=== PATIENT | female | born 1950 | race Native Hawaiian/Other Pacific Islander ===

== ENCOUNTER 2017-05-04 09:32 | Inpatient (IN) | payer BC ==
[~2017-05-04] VITALS: Ht 152.4 cm; Wt 81.7 kg
[2017-05-04 10:36] VITALS: BP 173/69; TEMP 99.2; Ht 152.4 cm; Wt 81.7 kg
[2017-05-04 12:00] VITALS: BP 173/69; TEMP 99.2
[2017-05-04 12:51] LABS: PLATELET COUNT 275 K/uL (152-353)
[2017-05-04 13:03] LABS: POTASSIUM 4.3 mmol/L (3.6-5.2)
[2017-05-04] MEDS ORDERED: INSUINJ47 SC (13:31)
[2017-05-04 16:00] VITALS: BP 136/49; TEMP 98.9
[2017-05-04 20:00] VITALS: BP 145/57; TEMP 101
[2017-05-05] VITALS: BP 126/58; TEMP 101.4
[2017-05-05 04:00] VITALS: BP 107/50; TEMP 97.7
[2017-05-05 04:27] LABS: PLATELET COUNT 237 K/uL (152-353)
[2017-05-05 04:54] LABS: POTASSIUM 3.9 mmol/L (3.6-5.2)
[2017-05-05 07:54] VITALS: BP 118/63; TEMP 97.7
[2017-05-05 12:00] VITALS: BP 140/59; TEMP 98.2
[2017-05-05 16:00] VITALS: BP 162/70; TEMP 98
[2017-05-05 20:00] VITALS: BP 166/72; TEMP 101
[2017-05-06] VITALS (7 sets, daily range): BP systolic 110–154; BP diastolic 44–80; TEMP 98–100.5
[2017-05-06 07:10] LABS: PLATELET COUNT 260 K/uL (152-353)
[2017-05-06 07:46] LABS: POTASSIUM 3.7 mmol/L (3.6-5.2)
[2017-05-07] VITALS (11 sets, daily range): BP systolic 110–165; BP diastolic 51–95; TEMP 98.2–99.7
[2017-05-07 10:50] LABS: PLATELET COUNT 292 K/uL (152-353)
[2017-05-08 04:00] VITALS: BP 155/78; TEMP 97.6
[2017-05-08 05:29] LABS: PLATELET COUNT 303 K/uL (152-353)
[2017-05-08 06:10] LABS: POTASSIUM 5.4 mmol/L (3.6-5.2)
[2017-05-08 08:00] VITALS: BP 172/89; TEMP 98.6
[2017-05-08 12:00] VITALS: BP 140/55; TEMP 97.8
[2017-05-08 16:00] VITALS: BP 120/71; TEMP 98
[2017-05-08 20:16] VITALS: BP 136/67; TEMP 98.1
[2017-05-09] VITALS: BP 120/62; TEMP 97.8
[2017-05-09 04:00] VITALS: BP 171/88; TEMP 98.2
[2017-05-09 06:23] LABS: POTASSIUM 4.3 mmol/L (3.6-5.2)
[2017-05-09 06:32] LABS: PLATELET COUNT 352 K/uL (152-353)
[2017-05-09 08:00] VITALS: BP 167/81; TEMP 98
[2017-05-09 12:00] VITALS: BP 132/71; TEMP 98
[2017-05-09 16:00] VITALS: BP 131/65; TEMP 98.8
[2017-05-09 20:06] VITALS: BP 143/83; TEMP 98.6
[2017-05-10] VITALS (7 sets, daily range): BP systolic 99–173; BP diastolic 56–97; TEMP 97.7–98.8
[2017-05-10 06:55] LABS: PLATELET COUNT 358 K/uL (152-353)
[2017-05-10 07:08] LABS: POTASSIUM 3.5 mmol/L (3.6-5.2)
[2017-05-11] VITALS: BP 149/66; TEMP 98.9
[2017-05-11 04:00] VITALS: BP 156/80; TEMP 98.9
[2017-05-11 05:16] LABS: PLATELET COUNT 373 K/uL (152-353)
[2017-05-11 06:20] LABS: POTASSIUM 4.7 mmol/L (3.6-5.2)
[2017-05-11 08:00] VITALS: BP 161/76; TEMP 98.8
[2017-05-11 12:00] VITALS: BP 185/82; TEMP 98.6
== END 2017-05-11 16:00 | disposition home or self-care (01) | DRG 166 ==
LOC: MED/SURG 09:32
PROVIDERS: Emergency Medicine; ADMIT Nurse Practitioner Family
PROC: 0BJ08ZZ Inspection of Tracheobronchial Tree, Via Natural or Artificial Opening Endoscopic (ICD-10-PCS; principal; 2017-05-04)
PROC: 0B9D8ZX Drainage of Right Middle Lung Lobe, Via Natural or Artificial Opening Endoscopic, Diagnostic (ICD-10-PCS; 2017-05-04)
PROC: 0BDD8ZX Extraction of Right Middle Lung Lobe, Via Natural or Artificial Opening Endoscopic, Diagnostic (ICD-10-PCS; 2017-05-04)
PROC: 0BD58ZX Extraction of Right Middle Lobe Bronchus, Via Natural or Artificial Opening Endoscopic, Diagnostic (ICD-10-PCS; 2017-05-04)
DX: J44.1 Chronic obstructive pulmonary disease with (acute) exacerbation (principal); J18.8 Other pneumonia, unspecified organism; E11.9 Type 2 diabetes mellitus without complications; Z79.4 Long term (current) use of insulin; R06.02 Shortness of breath; H66.93 Otitis media, unspecified, bilateral; R91.8 Other nonspecific abnormal finding of lung field; M62.81 Muscle weakness (generalized)
CPT/HCPCS: 36415; 36600; 80053; 82805; 82947; 82948; 83540; 83550; 83735; 83880; 85027; 86606; 86612; 86628; 86635; 86698; 87040; 87070; 87077; 87101; 87205; 87804; 87899; 88108; 93005; 94640; 94664; 94760; 96366; 96372; J0132; J0456; J0696; J1815; J1940; J2250; J2405; J2704; J2930; J3010; Q9963

== ENCOUNTER 2018-07-13 15:00 | Outpatient (CLI) | payer OTHER ==
[~2018-07-13 15:00] MED LIST: INSUINJ47 SC
[2018-07-13] MEDS ORDERED: LIPITOR20 MG PO (15:45)
[2018-07-13] MEDS ORDERED: GLIM2TAB PO (15:49)
[2018-07-13] MEDS ORDERED: SITA50TA2 PO (15:50)
== END 2018-07-13 15:06 | disposition short-term general hospital (02) ==
LOC: AMB 15:00
DX: R53.1 Weakness (principal); R26.2 Difficulty in walking, not elsewhere classified
CPT/HCPCS: A0425; A0427

== ENCOUNTER 2018-07-13 15:10 | Emergency (ER) | payer OTHER ==
[~2018-07-13] VITALS: Ht 152.4 cm; Wt 72.6 kg
[2018-07-13 15:10] VITALS: TEMP 98.8
[2018-07-13 15:44] LABS: POTASSIUM 4.1 mmol/L (3.6-5.2)
[2018-07-13] MEDS ORDERED: LIPITOR20 MG PO (15:45)
[2018-07-13 15:49] LABS: PLATELET COUNT 276 K/uL (152-353)
[2018-07-13] MEDS ORDERED: GLIM2TAB PO (15:49)
[2018-07-13] MEDS ORDERED: SITA50TA2 PO (15:50)
[2018-07-13 15:53] LABS: PARTIAL THROMBOPLASTIN TIME 24.1 SECONDS (24.5-33.6)
[2018-07-13 16:34] VITALS: BP 185/81
== END 2018-07-13 17:50 | disposition short-term general hospital (02) ==
LOC: ED 15:10
PROVIDERS: Family Medicine
DX: I63.9 Cerebral infarction, unspecified (principal); G81.90 Hemiplegia, unspecified affecting unspecified side
CPT/HCPCS: 80053; 85027; 85610; 85730; 93005; 99285

== ENCOUNTER 2020-08-28 17:15 | Emergency (ER) | payer OTHER ==
[~2020-08-28] VITALS: Ht 152.4 cm; Wt 72.6 kg
[~2020-08-28 17:15] MED LIST changes: +GLIM2TAB PO; +LIPITOR20 MG PO; +SITA50TA2 PO
[2020-08-28 17:17] VITALS: BP 139/76; TEMP 98.3
[2020-08-28 17:45] LABS: PLATELET COUNT 261 K/uL (152-353)
[2020-08-28 17:56] LABS: PARTIAL THROMBOPLASTIN TIME 25.2 SECONDS (24.5-33.6)
[2020-08-28 18:47] LABS: POTASSIUM 4.1 mmol/L (3.6-5.2); SODIUM 142 mmol/L (136-145)
[2020-08-29] MEDS ORDERED: GLIM4TAB PO (02:48)
[2020-08-29] MEDS ORDERED: ESCITALOPRAM10 MG PO (02:48)
[2020-08-29] MEDS ORDERED: AMLODIPINE BESYLATE PO (02:49)
[2020-08-29] MEDS ORDERED: COZAAR100 MG PO (02:49)
[2020-08-29] MEDS ORDERED: HYDR25TA60 PO (02:50)
[2020-08-29] MEDS ORDERED: MELATONIN3 MG PO (02:51)
[2020-08-29] MEDS ORDERED: ASPIR-8181 MG PO (15:00)
== END 2020-08-28 22:58 | disposition still patient (30) ==
LOC: ED 17:15
PROVIDERS: Family Medicine
DX: G45.8 Other transient cerebral ischemic attacks and related syndromes (principal); I10 Essential (primary) hypertension; I69.351 Hemiplegia and hemiparesis following cerebral infarction affecting right dominant side; Z79.899 Other long term (current) drug therapy; Z51.81 Encounter for therapeutic drug level monitoring
CPT/HCPCS: 36415; 80053; 82550; 84484; 85027; 85610; 85730; 93005; 99283

== ENCOUNTER 2020-08-28 21:40 | Observation (INO) | payer OTHER ==
[~2020-08-28] VITALS: Ht 152.4 cm; Wt 72.3 kg
[2020-08-29 01:59] VITALS: BP 144/70; TEMP 98.1; Ht 152.4 cm; Wt 72.3 kg
--- NOTE | 2020-08-29 02:22 | NUR ---
ZULEMA for 08/28/20 @ 2300 Rec'd pt from ER via wheel chair admitted to room [address] Camejo with Dx: TIA. Pt is a full code. Is on bed rest with bed side commode with assistance. Pt alert and oriented and able to make needs and concerns known. No c/o voiced at this time. Sunithaero checks within normal limits. Oriented to room and call system. Call light in easy reach at this time.
[2020-08-29] MEDS ORDERED: GLIM4TAB PO (02:48)
[2020-08-29] MEDS ORDERED: ESCITALOPRAM10 MG PO (02:48)
[2020-08-29] MEDS ORDERED: AMLODIPINE BESYLATE PO (02:49)
[2020-08-29] MEDS ORDERED: COZAAR100 MG PO (02:49)
[2020-08-29] MEDS ORDERED: HYDR25TA60 PO (02:50)
[2020-08-29] MEDS ORDERED: MELATONIN3 MG PO (02:51)
[2020-08-29 04:00] VITALS: BP 126/63; TEMP 97.6
--- NOTE | 2020-08-29 04:29 | NUR ---
Assisted pt to bedside commode x1 person assist. Require extensive assist with getting OOB and into standing position for pivoting to bedside toilet. Has nonskid socks on but pt is very weak and unable to maintain balance. Assisted back to bed and call light in easy reach. Neuro checks WNL.
--- NOTE | 2020-08-29 05:52 | NUR ---
Pt resting in bed with eyes closed. No c/o voiced. Pt requires assist to bedside toilet. Neuro checks WNL. No s/s of distress. Call light in easy reach.
[2020-08-29 07:54] VITALS: BP 146/58; TEMP 98
[2020-08-29 09:52] LABS: PLATELET COUNT 251 K/uL (152-353)
[2020-08-29 09:59] LABS: POTASSIUM 3.8 mmol/L (3.6-5.2)
--- NOTE | 2020-08-29 11:15 | NUR ---
PERIPHERAL IV INFILTRATED. 3 UNSUCCESSFUL ATTEMPTS MADE TO INITIATE NEW IV. PATIENT TOLERATED WELL. CHARGE NURSE NOTIFIED.
[2020-08-29 12:13] VITALS: BP 167/76; TEMP 98.2
[2020-08-29] MEDS ORDERED: ASPIR-8181 MG PO (15:00)
--- NOTE | 2020-08-29 15:15 | NUR ---
PATIENT AND FAMILY REQUESTED TO BE TRANSFERRED TO [facility]. DR. MAJOR IN CONTACT WITH HOSPITAL. PATIENT PLACED ON WAITING LIST. PATIENT MADE AWARE. FURTHER INSTRUCTIONS TO COME.
[2020-08-29 16:27] VITALS: BP 120/55; TEMP 98.1
[2020-08-29 20:00] VITALS: BP 108/60; TEMP 98.3
--- NOTE | 2020-08-29 21:18 | NUR ---
PT'S BLOOD SUGAR IS 318. NO INSULIN ORDERED. NOTIFIED ER DOCTOR ORDER RECEIVED FOR SLIDING SCALE INSULIN.
[2020-08-30] VITALS: BP 140/61; TEMP 97.7
--- NOTE | 2020-08-30 01:12 | NUR ---
PT SLEEPING NO DISTRESS NOTED.
[2020-08-30 04:00] VITALS: BP 116/53; TEMP 97.5
--- NOTE | 2020-08-30 05:22 | NUR ---
PT SLEEPING. NO DISTRESS NOTED.
[2020-08-30 05:26] LABS: PLATELET COUNT 244 K/uL (152-353)
[2020-08-30 05:31] LABS: POTASSIUM 4.1 mmol/L (3.6-5.2)
[2020-08-30 08:00] VITALS: BP 136/71; TEMP 97.6
--- NOTE | 2020-08-30 09:40 | NUR ---
ELMER PIZANO RN SPOKE WITH JENNIFER BOSTON RN FROM [facility] IN [place]. DARVIN NOTIFIED US THAT THEY ARE TRYING TO GET PT A BED AND WOULD POSSIBLY HAVE ONE SOMETIME LATER THIS AFTERNOON. PHONE NUMBER TO REACH HER [phone]
[2020-08-30 12:00] VITALS: BP 140/65; TEMP 97.9
--- NOTE | 2020-08-30 16:12 | NUR ---
spoke with YOUNG Rothman at [facility] and got the go ahead to transfer the pt. Report on pt given at this time.
--- NOTE | 2020-08-30 16:35 | NUR ---
pt being discharged off [facility] floor via [facility] to be transfered to [facility] in [place]. No acute distress noted at this time.
--- NOTE | 2020-08-30 17:33 | NUR ---
NOTIFIED PT'S FAMILY THAT SHE HAS A FOLLOW UP APPOINTMENT WITH DR. CARREON ON August AT 10 AM.
== END 2020-08-30 16:30 ==
LOC: MED/SURG 21:40
PROVIDERS: ADMIT Family Medicine; ATTEND Internal Medicine
DX: I69.351 Hemiplegia and hemiparesis following cerebral infarction affecting right dominant side (principal); I10 Essential (primary) hypertension; E11.9 Type 2 diabetes mellitus without complications; F32.89 Other specified depressive episodes; E78.49 Other hyperlipidemia
CPT/HCPCS: 80048; 80053; 82948; 84443; 85027; 87635; 96372; 96374; 99220; G0378; G0379; J1650; J1815; U0003

== ENCOUNTER 2021-08-05 09:39 | Outpatient (CLI) | payer OTHER ==
[~2021-08-05 09:39] MED LIST changes: +AMLODIPINE BESYLATE PO; +ASPIR-8181 MG PO; +COZAAR100 MG PO; +ESCITALOPRAM10 MG PO; +GLIM4TAB PO; +HYDR25TA60 PO; +MELATONIN3 MG PO
== END 2021-08-05 19:48 | disposition home or self-care (01) ==
LOC: MAMMO 09:39
PROVIDERS: ATTEND Student in an Organized Health Care Education/Training Program
DX: Z12.31 Encounter for screening mammogram for malignant neoplasm of breast (principal)

== ENCOUNTER 2021-10-16 00:02 | Emergency (ER) | payer OTHER ==
[~2021-10-16] VITALS: Ht 153.7 cm; Wt 71.2 kg
[2021-10-16 00:10] VITALS: BP 143/67; TEMP 98.4
== END 2021-10-16 01:45 | disposition home or self-care (01) ==
LOC: ED 00:02
DX: G89.18 Other acute postprocedural pain (principal); S05.02XA Injury of conjunctiva and corneal abrasion without foreign body, left eye, initial encounter; X58.XXXA Exposure to other specified factors, initial encounter; Y92.89 Other specified places as the place of occurrence of the external cause
CPT/HCPCS: 96372; 99283; J2270; J2550

== ENCOUNTER 2022-01-02 17:48 | Emergency (ER) | payer OTHER ==
[~2022-01-02] VITALS: Ht 153.7 cm; Wt 71.2 kg
[2022-01-02 17:56] VITALS: TEMP 98.6
[2022-01-02 19:06] LABS: PLATELET COUNT 293 K/uL (152-353)
[2022-01-02 19:21] LABS: POTASSIUM 4.7 mmol/L (3.6-5.2)
[2022-01-02] MEDS ORDERED: CIPRO500 MG PO (21:12)
[2022-01-02 21:41] VITALS: BP 146/86
== END 2022-01-02 21:41 | disposition home or self-care (01) ==
LOC: ED 17:48
PROVIDERS: Emergency Medicine
DX: N39.0 Urinary tract infection, site not specified (principal); E11.65 Type 2 diabetes mellitus with hyperglycemia; Z79.4 Long term (current) use of insulin; K62.1 Rectal polyp
CPT/HCPCS: 36415; 36600; 80048; 81000; 82805; 85027; 87077; 87086; 87088; 87186; 96360; 96365; 96372; 99284; J0696; J1815

== ENCOUNTER 2022-04-02 09:42 | Outpatient (CLI) | payer OTHER ==
[~2022-04-02 09:42] MED LIST changes: +CIPRO500 MG PO
== END 2022-04-02 19:18 | disposition home or self-care (01) ==
LOC: US 09:42
PROVIDERS: ATTEND Internal Medicine
DX: N18.9 Chronic kidney disease, unspecified (principal)

== ENCOUNTER 2022-04-04 09:27 | Outpatient (CLI) | payer OTHER ==
[2022-04-04 09:53] LABS: PLATELET COUNT 264 K/uL (152-353)
[2022-04-04 10:05] LABS: POTASSIUM 5.1 mmol/L (3.6-5.2)
== END 2022-04-04 18:55 | disposition home or self-care (01) ==
LOC: LABW 09:27
PROVIDERS: ATTEND Internal Medicine
DX: I12.9 Hypertensive chronic kidney disease with stage 1 through stage 4 chronic kidney disease, or unspecified chronic kidney disease (principal); N18.4 Chronic kidney disease, stage 4 (severe); E11.29 Type 2 diabetes mellitus with other diabetic kidney complication
CPT/HCPCS: 36415; 80069; 81002; 82570; 83883; 84156; 85027; 86038

== ENCOUNTER 2022-06-19 18:40 | Emergency (ER) | payer OTHER ==
[~2022-06-19] VITALS: Ht 153.7 cm; Wt 66.7 kg
[2022-06-19 18:45] VITALS: BP 152/69; TEMP 98.5
[2022-06-19 19:55] LABS: PLATELET COUNT 264 K/uL (152-353)
[2022-06-19 20:02] LABS: POTASSIUM 4.7 mmol/L (3.6-5.2)
== END 2022-06-19 21:30 | disposition home or self-care (01) ==
LOC: ED 18:40
PROVIDERS: Emergency Medicine
DX: N39.0 Urinary tract infection, site not specified (principal); E11.65 Type 2 diabetes mellitus with hyperglycemia; Z79.4 Long term (current) use of insulin
CPT/HCPCS: 80048; 81000; 83880; 84484; 85027; 87077; 87086; 87088; 87186; 93005; 96365; 96375; 99284; J0696; J2405